=== PATIENT | female | born 1995 ===

== ENCOUNTER 2025-04-17 09:00 | Day surgery (SDC) | payer OTHER ==
[2025-04-17] MEDS ORDERED: CEFOXITIN SODIUM 2,000 MG VIAL IV ONE (09:57)
[2025-04-17] MEDS ORDERED: POVIDONE-IODINE 118 ML BOTT TOP ONE (12:55)
[2025-04-17] MEDS ORDERED: DOXYCYCLINE MO100 MG PO (14:15)
[2025-04-17] MEDS ORDERED: PROMETHAZINE HCL 50 MG/ML AMPUL IM ONE (14:15)
[2025-04-17] MEDS ORDERED: NAPR500T14 PO (14:15)
== END 2025-04-17 20:40 | disposition home or self-care (01) ==
LOC: CIR.AMB 09:00
PROVIDERS: ATTEND Obstetrics & Gynecology
DX: D25.0 Submucous leiomyoma of uterus (principal); N84.0 Polyp of corpus uteri; N92.0 Excessive and frequent menstruation with regular cycle